=== PATIENT | male | born 1965 | race Caucasian/White ===

== ENCOUNTER 2020-07-24 03:47 | Emergency (ER) | payer SELFPAY ==
[2020-07-24 03:58] VITALS: BP 138/80; PULSE 101; RESP 16; TEMP 36.1; O2SAT 97; BMI 23.3
--- NOTE | 2020-07-24 04:10 | ED.WOUNDLAC ---
HPI - Wound/Laceration General Chief Complaint: Wound/Laceration Stated Complaint: Lac Time Seen by Provider: 07/24/20 04:10 Source: patient Mode of arrival: ambulatory Limitations: no limitations History of Present Illness HPI narrative: 55 yo male no AC therapy slipped and hit R eyebrow on side of urinal Location: face Place: other Patient tetanus UTD: Yes Context: accidental Associated symptoms: other (small abrasion/laceration) Review of Systems Review of Systems: Constitutional : No Fever, No Chills, Cardiovascular : No Chest Pain, No SOB Respiratory : No Dyspnea Gastrointestinal : No abdominal pain Musculoskeletal : No Joint Swelling Skin : No rash, positive skin laceration Neuro : No Weakness, No Numbness Psych : No SI/HI PMFSH Past Medical History Attestation statement: The following information was validated with the patient. Medical History No known health problems Social History Social History (Updated 07/24/20 @ 04:12 by Arabella Rossi DO) Smoking Status: Current every day smoker Advance Directives: No Advance Directives Information Provided: No Physical Exam Vital Signs: Vital Signs: Last Vital Signs Temp 97.0 F 07/24/20 03:58 Pulse 101 H 07/24/20 03:58 Resp 16 07/24/20 03:58 BP 138/80 07/24/20 03:58 Pulse Ox 97 07/24/20 03:58 Body Mass Index 23.3 Appearance: Alert. Oriented X3. No acute distress. Eyes: Pupils equal, round and reactive to light. ENT: Pharynx normal. superficial linear abrasion/laceration very small R lateral upper eyelid wound edges approximated already Neck: Normal inspection. Neck supple. CVS: Normal heart rate and rhythm. Pulses normal. Respiratory: No respiratory distress. Breath sounds normal. Abdomen: Soft and nontender. Skin: Skin warm and dry. Normal skin color. Normal skin turgor. Extremities: No lower extremity edema. No calf ttp Neuro: Oriented X 3. No motor deficit. No sensory deficit. MDM - Wound/Laceration MDM Narrative Medical decision making narrative: 55 yo male bumped head on urinal small abrasion on R eye lid GCS 15, no vomiting, steady gait, very minor superficial abrasion will apply steri strip no other trauma no indication for head CT Discharge Plan Discharge Clinical Impression: Abrasion Patient Disposition: Home, Self-Care Instructions: Abrasion (ED), Steristrips (ED) Additional Instructions: return to ED for any worsening symptoms or concerns allow steri strip to fall off on its own it is okay to shower Stand Alone Forms: Work/School Release
== END 2020-07-24 07:01 | disposition home or self-care (01) ==
PROVIDERS: Emergency Provider Emergency Medicine
DX: S01.111A Laceration without foreign body of right eyelid and periocular area, initial encounter (principal); H57.11 Ocular pain, right eye; R40.2410 Glasgow coma scale score 13-15, unspecified time; W45.8XXA Other foreign body or object entering through skin, initial encounter; W22.8XXA Striking against or struck by other objects, initial encounter; Y93.9 Activity, unspecified; Y92.9 Unspecified place or not applicable; Y99.9 Unspecified external cause status; F17.200 Nicotine dependence, unspecified, uncomplicated; Z71.6 Tobacco abuse counseling
CPT/HCPCS: 99283

== ENCOUNTER 2021-01-15 00:12 | Emergency (ER) | payer SELFPAY ==
[2021-01-15 00:33] VITALS: BP 132/89; PULSE 107; RESP 18; TEMP 36.7; O2SAT 100
== END 2021-01-15 04:08 | disposition left against medical advice (07) ==
PROVIDERS: Emergency Provider Emergency Medicine
DX: S61.205A Unspecified open wound of left ring finger without damage to nail, initial encounter (principal); X58.XXXA Exposure to other specified factors, initial encounter; Y93.9 Activity, unspecified; Y92.9 Unspecified place or not applicable; Y99.9 Unspecified external cause status
CPT/HCPCS: 99281; 99282

== ENCOUNTER 2021-04-07 09:00 | Outpatient (REF) | payer OTHER, SELFPAY ==
[2021-04-07 10:44] LABS: COVID-19 Test Positive (Negative)
== END 2021-04-07 09:01 | disposition home or self-care (01) ==
LOC: HO.LAB 09:00
PROVIDERS: Visit Provider Internal Medicine
DX: Z20.822 Contact with and (suspected) exposure to COVID-19 (principal)
CPT/HCPCS: 36415; 87635; C9803